=== PATIENT | female | born 1950 | race Caucasian/White ===

== ENCOUNTER 2023-05-14 15:56 | Emergency (ER) | payer MEDICARE, SELFPAY ==
[2023-05-14] VITALS (16 sets, daily range): BP systolic 116–154; BP diastolic 67–125; PULSE 62–84; RESP 15–20; TEMP 36.5–36.9; O2SAT 94–100
--- NOTE | ~2023-05-14 | XR_ITS ---
Portable chest x-ray Comparison: None Clinical History: Weakness Findings: Lungs are clear, without focal consolidation or pleural effusion. Cardiomediastinal silho uette is unremarkable. Bones and soft tissues are unremarkable. Impression: Normal chest. Reviewed, dictated and finalized at location . AND BEVER[employer] OUTLETS MANAGER Impression: Normal chest.
--- NOTE | ~2023-05-14 | XR_ITS ---
AP view of the pelvis and AP and lateral views of the left hip Clinical history: Pain Findings: No acute fracture or dislocation is seen. Osseous alignment is anatomic. Bilateral hip and SI joint spaces are preserved. Soft tissues are unremarkable. Impression: No significant abnormality is seen. Reviewed, dictated and finalized at [facility]. IDENT AND CHIEF EXECUTIVE OFFICER Impression: No significant abnormality is seen.
--- NOTE | ~2023-05-14 | XR_ITS ---
Left Knee Technique: AP, lateral, and sunrise views were obtained. Clinical History: Pain Findings: No fracture or dislocation is seen. There is mild to moderate tricompartmental degenerative change. There is chondrocalcinosis of menisci. Small joint effusion present. No joint effusion is se en. Impression: Mild to moderate tricompartmental degenerative change. Small joint effusion. Chondrocalcinosis of the menisci. Reviewed, dictated and finalized at location M. RCALENDER OPERATOR HELPER Impression: Mild to moderate tricompartmental degenerative change. Small joint effusion. Chondrocalcinosis of the menisci.
--- NOTE | ~2023-05-14 | CT_ITS ---
Noncontrast CT scan of the cervical spine Technique: Multiple contiguous axial [address] images of the cervical spine were obtained and rec onstructed in 2D sagittal and coronal planes on the acquisition scanner. Dose reduction technique was used on this scan by utilizing automated exposure control, adjustment of the mA and/or kV according to patient size. The dose-length product (DLP) was 294.16 mGy-cm. Clinical History: Pain Findings: No fractures or dislocations. There are multilevel disc ossify complexes throughout cervic al spine. There is right neural foraminal narrowing at C3-C4 the right facet arthropathy. There is pr obable bilateral neural foraminal narrowing at C4-C5 with bilateral facet arthropathy and disc ossify complex. There is bilateral neural foraminal narrowing, right worse than left, at C5-C6, bilateral f acet arthropathy, right worse than left. There is bilateral neural foraminal narrowing at C6-C7. No p revertebral soft tissue swelling. Impression: No fracture or subluxation of the cervical spine. Moderate degenerative spondylosis. Reviewed, dictated and finalized at location . MIXER HELPER Impression: No fracture or subluxation of the cervical spine. Moderate degenerative spondylosis.
[2023-05-14] MEDS: KETOROLAC 30 MG/ML VIAL (*BKC) IV PUSH (17:49)
[2023-05-14 17:56] LABS: Hematocrit 43.8 % (35.0-42.0); Hemoglobin 14.9 g/dL (11.7-13.8); Mean Corpuscular Volume 85.2 fL (78.0-102.0); Platelet Count Result 182 K/mm3 (150-420); Red Blood Count 5.14 M/mm3 (4.20-5.40); Red Cell Distribution Width 11.7 % (11.6-14.4); White Blood Count 16.6 K/mm3 (4.8-10.8)
[2023-05-14 17:57] LABS: Mean Platelet Volume 12.6 fl (9.2-11.8)
[2023-05-14 18:28] LABS: Alanine Aminotransferase 25 U/L (14-59); Albumin Level 3.5 g/dL (3.4-5.0); Alkaline Phosphatase 92 U/L (46-116); Anion Gap 13 mmol/L (8-16); Aspartate Amino Transferase 21 U/L (15-37); Bilirubin,Total 1.9 mg/dL (0.00-1.00); Blood Urea Nitrogen 20 mg/dL (7-18); Calcium 9.6 mg/dL (8.5-10.1); Carbon Dioxide 23 mmol/L (21-32); Chloride 97 mmol/L (98-108); Estimated CRCL calculation 38 ml/min; Estimated Glomerular Filt Rate 42; Glucose 119 mg/dL (70-99); Osmolality Calculated 279 mOsm/kg (285-295); Potassium 3.2 mmol/L (3.5-5.1); Sodium 133 mmol/L (136-145); Total Protein 7.9 g/dL (6.4-8.2)
[2023-05-14 18:35] LABS: SARS-CoV-2 RNA PCR Negative (Negative)
[2023-05-14 18:36] LABS: Influenza A QL RT-PCR Negative (Negative); Influenza B QL RT-PCR Negative (Negative); RSV RNA, RT-PCR Negative (Negative)
[2023-05-14 18:48] LABS: Total Cells Counted 100
[2023-05-14 18:49] LABS: Band Neutrophils Percent 0 % (0-6); Basophils Absolute Manual 0.33 K/mm3 (0-0.1); Basophils Percent Manual 2 % (0-1); Eosinophils Percent Manual 0 % (1-6); Lymphocytes Absolute Manual 2.82 K/mm3 (1.1-4.5); Lymphocytes Percent Manual 17 % (18-44); Monocytes Absolute Manual 2.82 K/mm3 (0.1-0.90); Monocytes Percent Manual 17 % (3-9); Neutrophils Absolute Manual 10.62 K/mm3 (1.7-7.2); Neutrophils Percent Manual 64 % (46-73); Platelet Estimate Adequate (Adequate); Schistocytes None Seen (NORMAL)
--- NOTE | 2023-05-14 19:25 | PC.NURSE ---
report to anisa shelton. all questions answered.
[2023-05-14 19:45] LABS: Bilirubin Urine Negative (Negative); Blood Urine 1+ (Negative); Color Urine Yellow (Yellow); Glucose Urine UA Negative (Negative); Ketones Urine Negative (Negative); Leukocyte Esterase Ur 1+ LEU/UL (Negative); Nitrate Urine Negative (Negative); Protein Urine 2+ (Negative)
[2023-05-14 19:53] LABS: Add Urine Microscopic? YES; Appearance Urine Slightly Cloudy (Clear); Squamous Epithelial Cell Urine Occasional /hpf (Few); WBC Clumps Urine Present /hpf; WBC Urine 21-30 /hpf (0-3)
[2023-05-14 19:54] LABS: Amorphous Sediment Urine Few; Bacteria Urine 1+ /hpf; Mucus Urine Few /lpf; Renal Epithelial Cells Urine Few /hpf
--- NOTE | 2023-05-14 20:10 | ED.LOWEXIN ---
HPI - Extremity Injury (Lower) General Chief Complaint: Extremity Problem,Nontraumatic Stated Complaint: body aches; hip pain and neck pain Time Seen by Provider: 05/14/23 16:08 Source: patient Limitations: no limitations History of Present Illness HPI Narrative: this is a 72 female presents via EMS with some neck pain with left hip and left knee pain with no injuries no recent falls patient rates her pain at over a 10/10, there is no fever chills no shortness of breath no flank pain no nausea or vomiting no abdominal pain. Patient denies having any chest pain or shortness of breath no diarrhea or constipation. Onset (ago): week(s) Injury: Left: hip ( painful with palpation and movement) and knee ( swelling with and tenderness with palpation) Related Data Allergies Allergy/AdvReac Type Severity Reaction Status Date / Time iohexol Allergy Unknown Verified 05/14/23 16:36 [From contrast - CT, X-RAY] Review of Systems Review of Systems: All systems reviewed & are unremarkable except as noted in HPI and below PMFSH Past Medical History Medical History Osteoarthritis cervical spine Exam Const: General: healthy appearing Nutritional Appearance: well nourished Orientation/consciousness: patient oriented x3 Limitations: no limitations Neck: Neck: normal visual inspection, no lymphadenopathy and no meningeal signs Chest: Chest palpation & inspection: normal inspection of the chest Resp: Effort & Inspection: normal respiratory effort Auscultation: clear to auscultation bilaterally Cardio: Rate: regular rate Rhythm: regular rhythm GI: GI Palp: Yes Soft to palpation Auscultation: normal bowel sounds Back/Spine/Pelvis: Back: no CVA tenderness Skin: General skin exam: normal color Rashes: no rashes Neuro: General: patient oriented x3 and moves all extremities Extrem: Other: cervical neck tenderness with movement, left hip pain with palpation and movement and left knee with some swelling and effusion. Course Course Emergency Course: Patient had x-rays performed of the chest which shows no acute cardiopulmonary abnormality, CT scan of the cervical spine left hip and the left knee were unremarkabe with no acute changes no fractures there is some arthritic DJD and the CT scans. The patient did receive IV Toradol 30mg and current pain level down to a 2/10. COVID was negative, blood work within normal limits, urinalysis shows urinary tract infection and patient received a dose of Macrobid. Vital Signs Vital signs: Vital Signs Temperature 36.9 C 05/14/23 15:56 Pulse Rate 84 05/14/23 15:56 Respiratory Rate 18 05/14/23 15:56 Blood Pressure 154/70 H 05/14/23 15:56 Pulse Oximetry 97 05/14/23 15:56 Oxygen Delivery Room Air 05/14/23 15:56 Temperature 36.9 C 05/14/23 15:56 Pulse Rate 79 05/14/23 19:17 Respiratory Rate 20 05/14/23 19:17 Blood Pressure 126/90 05/14/23 19:16 Pulse Oximetry 94 05/14/23 19:17 Oxygen Delivery Room Air 05/14/23 19:17 MDM - Extremity Injury (Lower) Lab Data 05/14/23 17:32 05/14/23 17:32 Labs: Lab Results 05/14/23 Range/Units 17:32 WBC 16.6 H (4.8-10.8) K/mm3 RBC 5.14 (4.20-5.40) M/mm3 Hgb 14.9 H (11.7-13.8) g/dL Hct 43.8 H (35.0-42.0) % MCV 85.2 (78.0-102.0) fL MCH 29.0 (27.0-31.0) pg MCHC 34.0 (32.0-36.0) g/dL RDW 11.7 (11.6-14.4) % Plt Count 182 (150-420) K/mm3 MPV 12.6 H (9.2-11.8) fl Immature Gran % (Auto) Not Reportable Neut % (Auto) Not Reportable Lymph % (Auto) Not Reportable Kaufman % (Auto) Not Reportable Eos % (Auto) Not Reportable Baso % (Auto) Not Reportable Lymph # (Auto) Not Reportable Kaufman # (Auto) Not Reportable Eos # (Auto) Not Reportable Baso # (Auto) Not Reportable Abs Immat Gran (auto) Not Reportable Absolute Neuts (auto) Not Reportable Absolute Nucle
[2023-05-14] MEDS: NITROFURANTOIN MONOHYD MACROCR 100 MG CAP PO (20:11)
[2023-05-14] MEDS: ACETAMINOPHEN 500 MG TABLET 1000 MG PO (20:11)
--- NOTE | 2023-05-17 13:01 | PC.NURSE ---
FINAL URINE CULTURE RESULTS: MIXED GENITAL OLEG. NO ACTION NEEDED.
--- NOTE | 2023-05-21 15:37 | PC.NURSE ---
Final blood culture report, no growth after 5 days, no further treatment or action needed.
== END 2023-05-14 20:28 | disposition home or self-care (01) ==
PROVIDERS: Emergency Provider Emergency Medicine; PCP Physician Assistant
DX: M19.09 Primary osteoarthritis, other specified site (principal); N30.00 Acute cystitis without hematuria; Z20.822 Contact with and (suspected) exposure to COVID-19
CPT/HCPCS: 36415; 71045; 72125; 73502; 73562; 80053; 81001; 85025; 87040; 87086; 87088; 87637; 96374; 99284; A9270; J1885

== ENCOUNTER 2023-10-06 14:50 | Outpatient (CLI) | payer MEDICARE, SELFPAY ==
[2023-10-06 15:23] LABS: Hemoglobin A1C 5.7 % (<5.7)
[2023-10-06 15:34] LABS: Hematocrit 42.6 % (35.0-42.0); Hemoglobin 14.6 g/dL (11.7-13.8); Mean Corpuscular HGB Conc 34.3 g/dL (32-36); Mean Corpuscular Hemoglobin 29.3 pg (27.0-31.0); Mean Corpuscular Volume 85.4 fL (78.0-102.0); Mean Platelet Volume 12.5 fl (9.2-11.8); Platelet Count Result 155 K/mm3 (150-420); Red Blood Count 4.99 M/mm3 (4.20-5.40); Red Cell Distribution Width 12.2 % (11.6-14.4); White Blood Count 9.2 K/mm3 (4.8-10.8)
[2023-10-06 16:05] LABS: Alanine Aminotransferase 18 U/L (14-59); Albumin Level 4.2 g/dL (3.4-5.0); Alkaline Phosphatase 93 U/L (46-116); Anion Gap 14 mmol/L (4-12); Aspartate Amino Transferase 32 U/L (15-37); Bilirubin,Total 0.8 mg/dL (0.00-1.00); Blood Urea Nitrogen 19 mg/dL (7-18); Calcium 9.6 mg/dL (8.5-10.1); Carbon Dioxide 25 mmol/L (21-32); Chloride 103 mmol/L (98-108); Cholesterol 166 mg/dL (0-200); Estimated Glomerular Filt Rate 46; Glucose 104 mg/dL (70-99); HDL Direct 51 mg/dL (40-60); LDL Cholesterol Calculated 72 mg/dL (<130); Osmolality Calculated 296 mOsm/kg (285-295); Potassium 3.3 mmol/L (3.5-5.1); Sodium 142 mmol/L (136-145); Total Protein 7.6 g/dL (6.4-8.2); Triglycerides 213 mg/dL (0-150)
== END 2023-10-06 14:51 | disposition home or self-care (01) ==
LOC: CHSLAB 14:53
PROVIDERS: PCP Physician Assistant; Visit Provider Physician Assistant
DX: E78.5 Hyperlipidemia, unspecified (principal); Z13.6 Encounter for screening for cardiovascular disorders; I10 Essential (primary) hypertension; R73.01 Impaired fasting glucose; Z84.81 Family history of carrier of genetic disease
CPT/HCPCS: 36415; 80053; 80061; 81292; 81294; 81295; 81297; 81298; 81300; 81317; 81403; 83036; 85027